=== PATIENT | female | born 1965 | race Caucasian/White ===

== ENCOUNTER → 2018-01-12 | Emergency (ER) | payer OTHER ==
[~2018-01-12] VITALS: Ht 170.2 cm; Wt 90.7 kg
[~2018-01-12] MED LIST: ANAPROX DS550 MG PO; BACTRIM DS TAB1 EACH PO; ONDANSETRON ODT8 MG PO; POTASSIUM CHLO20 ME1 PO; SYNTHROID75 MCG PO; TRIAMTERENE-HC1 EAC3 PO
== END ==
LOC: ED 17:07
DX: K52.9 Noninfective gastroenteritis and colitis, unspecified (principal); I10 Essential (primary) hypertension; Z79.899 Other long term (current) drug therapy
CPT/HCPCS: 80053; 81001; 83690; 85025; 96374; 99284; J2405

== ENCOUNTER 2024-04-22 09:36 | Emergency (ER) | payer OTHER ==
[~2024-04-22] VITALS: Ht 170.2 cm; Wt 88.8 kg
[2024-04-22] MEDS ORDERED: ASPIRIN 81 MG CHEW PO ONE (09:45)
[2024-04-22 09:53] LABS: BASOPHILS 0.6 % (0-2); EOSINOPHILS 1.7 % (0-6); HEMATOCRIT 38.9 % (35.0-50.0); HEMOGLOBIN 13.4 g/dL (12.0-18.0); LYMPHOCYTES 34.7 % (24-44); MCH 34.3 (27-36); MCHC 34.4 g/dl (30-36); MCV 99.7 fl (81-99); MONOCYTES 8.9 % (0-12); NEUTROPHILS 54.1 % (39-80); PLATELET COUNT 226 K/uL (140-440); RDW 13.9 (10.5-15.0)
[2024-04-22 10:13] LABS: ALBUMIN 4.1 g/dL (3.4-5.0); ALBUMIN/GLOBULIN RATIO 1.17 (1.1-2.4); ALKALINE PHOSPHATASE 125 U/L (46-116); ALT (SGPT) 36 U/L (14-59); AST (SGOT) 16 U/L (15-37); BILIRUBIN, TOTAL 0.2 ng/dL (0.2-1.0); CALCIUM 9.6 mg/dL (8.5-10.1); CARBON DIOXIDE 26 mmol/L (21-32); CHLORIDE 103 mmol/L (98-107); GLOMERULAR FILTRATION RATE,EST 66 mL/min (>60); PROTEIN, TOTAL 7.6 g/dL (6.4-8.2); UREA NITROGEN 33 mg/dL (7-18)
[2024-04-22] MEDS ORDERED: ACETAMINOPHEN 500 MG TAB PO ONE (11:00)
[2024-04-22 11:17] LABS: BILIRUBIN, URINE NEGATIVE (negative); BLOOD/HGB, URINE NEGATIVE (Negative); KETONE, URINE NEGATIVE (Negative); LEUK ESTERASE, URINE NEGATIVE (negative); NITRITE, URINE NEGATIVE (negative)
[2024-04-22 11:26] VITALS: BP 115/88
--- NOTE | 2024-04-22 19:23 | EKG ---
[facility] [address] [place], [place] [address] Signed Normal sinus rhythm Normal ECG Confirmed by Kike Arroyo MD ([id number]) on 04/22/2024 7:23:42 PM Electronically Signed By: KIKE ARROYO MD 04/22/241922 PATIENT NAME: HAYDER BULLARD Electrocardiogram DATE OF : 67 PHYSICIAN: KIKE ARROYO MD REPORT #: [id number] REPORT IS CONFIDENTIAL AND NOT TO BE RELEASED WITHOUT AUTHORIZATION
== END 2024-04-22 11:26 | disposition home or self-care (01) ==
LOC: ED 09:36
PROVIDERS: Emergency Medicine
DX: R07.89 Other chest pain (principal); I10 Essential (primary) hypertension; E11.9 Type 2 diabetes mellitus without complications; Z79.899 Other long term (current) drug therapy; Z79.890 Hormone replacement therapy
CPT/HCPCS: 36415; 71045; 80053; 81003; 83880; 84484; 85025; 85379; 93005; 93010; 99285-25; A9270

== ENCOUNTER 2024-05-30 13:43 | Emergency (ER) | payer OTHER ==
[~2024-05-30] VITALS: Ht 170.2 cm; Wt 88.5 kg
[2024-05-30] MEDS ORDERED: SODIUM CHLORIDE 0.9% 1,000 ML IV ONE (14:00)
[2024-05-30 14:11] LABS: BILIRUBIN, URINE NEGATIVE (negative); BLOOD/HGB, URINE SMALL (Negative); KETONE, URINE NEGATIVE (Negative); LEUK ESTERASE, URINE MODERATE (negative); NITRITE, URINE NEGATIVE (negative)
[2024-05-30] MEDS ORDERED: LISINOPRIL-HCT1 EAC1 PO (14:13)
[2024-05-30] MEDS ORDERED: LEVOTHYROXINE50 MCG PO (14:14)
[2024-05-30 14:16] LABS: CRYSTALS, URINE NONE SEEN (0-1+); EPITHELIAL CELLS, URINE SQUAMOUS 1+ /lpf (0-1+); WHITE BLOOD CELLS, URINE >50 /HPF (0-5)
[2024-05-30 14:17] LABS: BACTERIA, URINE 2+ /hpf (negative); CASTS, URINE NONE SEEN \\lpf; COLLECTION TYPE, URINE CLEAN CATCH; REFLEX CULTURE, URINE Yes (No)
[2024-05-30 14:25] LABS: BASOPHILS 0.2 % (0-2); EOSINOPHILS 0.1 % (0-6); HEMATOCRIT 34.1 % (35.0-50.0); HEMOGLOBIN 12.1 g/dL (12.0-18.0); MCH 34.8 (27-36); MCHC 35.5 g/dl (30-36); MCV 98.1 fl (81-99); MONOCYTES 12.3 % (0-12); NEUTROPHILS 72.4 % (39-80); PLATELET COUNT 229 K/uL (140-440); RBC 3.47 M/ul (4.3-5.7); RDW 13.8 (10.5-15.0)
[2024-05-30 14:40] LABS: ALBUMIN 3.3 g/dL (3.4-5.0); ALBUMIN/GLOBULIN RATIO 0.77 (1.1-2.4); ANION GAP 13.1 (7-21); BILIRUBIN, TOTAL 0.3 ng/dL (0.2-1.0); BUN/CREATININE RATIO 15.31 (6.0-28.6); CALCIUM 8.7 mg/dL (8.5-10.1); CREATININE, SERUM 2.09 mg/dL (0.55-1.02); POTASSIUM 3.1 mmol/L (3.5-5.1); PROTEIN, TOTAL 7.6 g/dL (6.4-8.2)
[2024-05-30] MEDS ORDERED: ACETAMINOPHEN 500 MG TAB PO ONE (15:00)
[2024-05-30] MEDS ORDERED: CEPHALEXIN500 MG PO (15:24)
[2024-05-30 15:41] VITALS: BP 104/69
[2024-05-30] MEDS ORDERED: CEPHALEXIN MONOHYDRATE 500 MG CAP PO ONE (15:45)
== END 2024-05-30 15:42 | disposition home or self-care (01) ==
LOC: ED 13:43
PROVIDERS: Emergency Medicine
DX: N39.0 Urinary tract infection, site not specified (principal); N17.9 Acute kidney failure, unspecified; N18.9 Chronic kidney disease, unspecified; I10 Essential (primary) hypertension; Z88.7 Allergy status to serum and vaccine; Z88.2 Allergy status to sulfonamides; Z79.890 Hormone replacement therapy; Z79.899 Other long term (current) drug therapy
CPT/HCPCS: 36415; 51701; 51798; 80053; 81001; 85025; 87088; 99283-25; A9270; J7030

== ENCOUNTER 2024-08-30 06:36 | Inpatient (IN) | payer OTHER ==
[~2024-08-30] VITALS: Ht 170.2 cm; Wt 86.7 kg
[~2024-08-30 06:36] MED LIST changes: +CEPHALEXIN500 MG PO; +LEVOTHYROXINE50 MCG PO; +LISINOPRIL-HCT1 EAC1 PO
[2024-08-30] MEDS ORDERED: HYDROCHLOROTH12.5 M1 PO (07:02)
[2024-08-30] MEDS ORDERED: ALBUTEROL/IPRATROPIUM 3 ML NEB INH ONE ×3 (07:45→20:45)
[2024-08-30 07:55] LABS: BASOPHILS 0.5 % (0-2); HEMATOCRIT 38.9 % (35.0-50.0); HEMOGLOBIN 13.6 g/dL (12.0-18.0); LYMPHOCYTES 30.4 % (24-44); MCH 32.7 (27-36); MCHC 34.9 g/dl (30-36); MCV 93.7 fl (81-99); MONOCYTES 18.1 % (0-12); PLATELET COUNT 152 K/uL (140-440); RBC 4.15 M/ul (4.3-5.7); RDW 13.7 (10.5-15.0)
[2024-08-30 08:18] LABS: ALBUMIN 3.9 g/dL (3.4-5.0); ALBUMIN/GLOBULIN RATIO 1.22 (1.1-2.4); ANION GAP 12.9 (7-21); BILIRUBIN, TOTAL 0.3 mg/dL (0.2-1.0); BUN/CREATININE RATIO 22.03 (6.0-28.6); CALCIUM 8.9 mg/dL (8.5-10.1); CREATININE, SERUM 1.18 mg/dL (0.55-1.02); POTASSIUM 2.9 mmol/L (3.5-5.1); PROTEIN, TOTAL 7.1 g/dL (6.4-8.2)
[2024-08-30 08:23] LABS: CORONAVIRUS COVID-19 AG NEGATIVE (NEGATIVE); INFLUENZA A AG POSITIVE (NEGATIVE); INFLUENZA B AG NEGATIVE (NEGATIVE)
[2024-08-30] MEDS ORDERED: POTASSIUM CHLORIDE 20 MEQ/15 ML CUP PO ONE (09:00)
[2024-08-30] MEDS ORDERED: ondansetron HCL 4 MG/2 ML VIAL IV PRN (09:15)
[2024-08-30] MEDS ORDERED: ACETAMINOPHEN 325 MG TAB PO PRN (09:15)
[2024-08-30] MEDS ORDERED: LACTATED RINGER'S 1,000 ML IV SCH (09:15)
[2024-08-30] MEDS ORDERED: OSELTAMIVIR PHOSPHATE 75 MG CAP PO ONE (09:15)
[2024-08-30 10:55] VITALS: BP 113/72
--- NOTE | 2024-08-30 11:04 | NUR ---
THIS RN TO ER, VERBAL REPORT RECEIVED FROM LORENA PAYTON. THIS RN TRANSPORTS PT VIA GURNEY FROM ER TO MED-SURG. PT ARRIVES TO MED-SURG ROOM 112 AT 1045. PT AMBULATES FROM GURNEY TO BED, TOLERATES THIS WELL. VSS. PT SATS 96 ON 3 LPM VIA [place]. FAMILY X2 AT BEDSIDE. PT ORIENTED TO ROOM, CALL LIGHT, PHONE AND BED. PT TITRATED DOWN TO 2 LPM, SATS 94%.
[2024-08-30] MEDS ORDERED: VITAMIN D21250 MCG PO (11:44)
[2024-08-30] MEDS ORDERED: LOSARTAN POTASS25 MG PO (11:44)
[2024-08-30] MEDS ORDERED: HYDROCHLOROTHIA25 MG PO (11:45)
[2024-08-30] MEDS ORDERED: ESTRADIOL42.5 GM PV (11:49)
[2024-08-30] MEDS ORDERED: PHARMACY RENAL DOSE ADJUSTMENT 1 DOSE MISC PO SCH (12:00)
--- NOTE | 2024-08-30 12:08 | NUR ---
PT RESTS IN BED, SCDS IN PLACE TO BLE. LR INFUSING AT 100 ML/HR, IV SITE INTACT, NO REDNESS OR SWELLING. CALL LIGHT IN REACH. NO REQUESTS AT THIS TIME.
[2024-08-30] MEDS ORDERED: METRONIDAZOLE500 MG PO (12:38)
[2024-08-30] MEDS ORDERED: CLINDAMYCIN PHO40 GM PV (12:38)
[2024-08-30] MEDS ORDERED: NITROFURANTOIN100 M1 PO (12:40)
--- NOTE | 2024-08-30 13:03 | NUR ---
PATIENT IN BED AT THIS TIME. TITLE CURATIVE SPECIALIST DID HOURLY ROUNDS, CALL LIGHT WITHIN REACH, NO FURTHER NEEDS AT THIS TIME.
--- NOTE | 2024-08-30 13:12 | NUR ---
medications reconciled using pharmacy records and patient interview
[2024-08-30 13:43] VITALS: BP 114/71
--- NOTE | 2024-08-30 13:47 | NUR ---
PATIENT IN BED AT THIS TIME. COMMERCIAL ATTACHE CHARTED VITALS AND I&O'S. CALL LIGHT WITHIN REACH, NO FURTHER NEEDS AT THIS TIME.
[2024-08-30] MEDS ORDERED: AZITHROMYCIN 250 MG TAB PO SCH (13:52)
[2024-08-30] MEDS ORDERED: CEFTRIAXONE SODIUM 2 GM in SODIUM CHLORIDE 0.9% 100 ML IV SCH (13:52)
--- NOTE | 2024-08-30 14:25 | NUR ---
UR CLINICAL REVIEW: JOY, MEETS INPT FOR VIRAL ILLNESS, ACUTE NEED FOR OXYGEN WITHOUT BASELINE NEED, POSITIVE INFLUENZA EOCCO INPT 08/30/2024 @ 0931 ORDER MATCHES REG AUTH PENDING, CLINICALS SENT VIA [employer] TO HOME WHEN MEDICALLY STABLE 09/01/2024
--- NOTE | 2024-08-30 15:00 | NUR ---
Spoke with Chelsey. She states she lives in [place]. She lives alone. 1 step into the home. She does not use any DME. Pt uses the pharmacy at [facility] and her PCP is in [place], [place]. She denies any needs. States her daughter will assist her if needed. She is using 02 while in the hospital. She has a harsh cough. Denies financial or safety issues. Home when cleared medically.
[2024-08-30] MEDS ORDERED: GUAIFENESIN/DEXTROMETHORPHAN 5 ML SYRUP PO SCH (18:00)
[2024-08-30 18:09] VITALS: BP 106/60
--- NOTE | 2024-08-30 18:11 | NUR ---
PATIENT IN BED AT THIS TIME. MAGAZINE FILLER CHARTED VITALS AND I&O'S. CALL LIGHT WITHIN REACH, NO FURTHER NEEDS AT THIS TIME.
[2024-08-30 18:30] VITALS: BP 106/60
--- NOTE | 2024-08-30 19:22 | NUR ---
RECEIVED REPORT FROM DAY SHIFT RN. PATIENT IS RESTING IN BED. PATIENT DENIES ANY NEEDS. CALL LIGHT IN REACH.
[2024-08-30] MEDS ORDERED: OSELTAMIVIR PHOSPHATE 75 MG CAP PO SCH (21:00)
[2024-08-30] MEDS ORDERED: MELATONIN 3 MG TAB PO PRN (21:00)
[2024-08-30 21:06] VITALS: BP 108/60
[2024-08-30 21:11] VITALS: BP 108/60
--- NOTE | 2024-08-30 21:32 | NUR ---
PATIENTS VITALS TAKEN AND RECORED. INTAKE AND OUPUT RECORDED. NEB TX GIVEN PER ORDER. PATIENT PLACED ON CPOX. PATIENT OXYGEN SATURATION NOTED TO BE 86% ON 1L VIA NC. PATIENT TITRATED TO 2L VIA NC AND OXYGEN SATURATION IMPROVED TO 92%. PATIENTS OM MEDS GIVEN PER ORDER. PATIENTS IV FLUSHED AND SL PER ORDER. PATIENT DENIES ANY FURTHER NEEDS. CALL LIGHT IN REACH.
--- NOTE | 2024-08-30 22:25 | NUR ---
PATIENT UP TO BR. PATIENT ABLE TO VOID. PATIENT IS BACK IN BED RESTING. PATIENT REPORTS A HEADAHCE, PRN MEDICATION GIVEN PER ORDER. PATIENT REMAINS ON 2L VIA NC. CPOX IN USE. PATIENT DENIES ANY SOB. PATIENT DENIES ANY FURTHER NEEDS. CALL LIGHT IN REACH.
[2024-08-31] VITALS (11 sets, daily range): BP systolic 101–121; BP diastolic 62–78
--- NOTE | 2024-08-31 00:23 | NUR ---
PATIENT IS RESTING IN BED WITH EYES CLOSED, CPOX READINGS ARE WNL. NAD NOTED. CALL LIGHT IN REACH. PATIENT REMAINS ON 2L VIA NC.
--- NOTE | 2024-08-31 02:12 | NUR ---
PATIENT UP TO THE BR TO VOID. PATIENT IS BACK IN BED RESTING. PATIENT DENIES ANY SOB. PATIENT REMAINS ON 2L VIA NC. CPOX IN USE. VITALS TAKEN AND RECORDED. INTAKE AND OUTPUT RECORDED. SCHEDULED MEDS GIVEN PER ORDER. FRESH ICE WATER AND SEVEN UP PROVIDED. RT IN TO EVALUATE PATIENT. PATIENT DENIES ANY FURTHER NEEDS. CALL LIGHT IN REACH.
[2024-08-31] MEDS ORDERED: ALBUTEROL/IPRATROPIUM 3 ML NEB INH PRN (02:15)
--- NOTE | 2024-08-31 04:02 | NUR ---
PATIENT IS RESTING IN BED WITH EYES CLOSED, CPOX READINGS ARE WNL. NAD NOTED. CALL LIGHT IN REACH.
--- NOTE | 2024-08-31 05:30 | NUR ---
LAB IN ROOM. PATIENTS VITALS TAKEN AND RECORDED. PATIENT UP TO BR AND ABLE TO VOID. PATIENT IS BACK IN BED RESTING. INTAKE AND OUTPUT RECORDED. PATIENTS AM MEDS GIVEN PER ORDER. THIS RN ATTEMPTED TO TITRATE PATIENT TO RA. PATIENT DESATED TO 85% ON RA. PATIENT PLACED BACK ON 2L VIA NC. PATIENT DENIES ANY SOB. PATIENT DENIES ANY FURTHER NEEDS CALL LIGHT IN REACH.
[2024-08-31 05:32] LABS: BASOPHILS 0.5 % (0-2); EOSINOPHILS 0.1 % (0-6); HEMATOCRIT 39.4 % (35.0-50.0); HEMOGLOBIN 13.7 g/dL (12.0-18.0); LYMPHOCYTES 53.9 % (24-44); MCH 32.8 (27-36); MCHC 34.7 g/dl (30-36); MCV 94.5 fl (81-99); MONOCYTES 12.6 % (0-12); NEUTROPHILS 32.9 % (39-80); PLATELET COUNT 146 K/uL (140-440); RBC 4.17 M/ul (4.3-5.7); RDW 14.1 (10.5-15.0)
[2024-08-31 05:54] LABS: ALBUMIN 3.5 g/dL (3.4-5.0); ALBUMIN/GLOBULIN RATIO 1.09 (1.1-2.4); BILIRUBIN, TOTAL 0.2 mg/dL (0.2-1.0); BUN/CREATININE RATIO 18.07 (6.0-28.6); CALCIUM 8.3 mg/dL (8.5-10.1); CREATININE, SERUM 0.83 mg/dL (0.55-1.02); PROTEIN, TOTAL 6.7 g/dL (6.4-8.2)
--- NOTE | 2024-08-31 06:30 | NUR ---
PATIENT IS RESTING IN BED WATCHING TV. PATIENT DENIES ANY NEEDS. CALL LIGHT IN REACH.
[2024-08-31] MEDS ORDERED: LEVOTHYROXINE SODIUM 50 MCG TAB PO SCH (07:00)
--- NOTE | 2024-08-31 07:12 | NUR ---
VERBAL REPORT RECEIVED FROM LORENA MARTINEZ. PT RESTS IN BED, AWAKE AND ALERT, WATCHES TV, REQUESTS APPLE SAUCE, RECEIVED. CALL LIGHT IN REACH, NO FURTHER REQUESTS AT THIS TIME.
--- NOTE | 2024-08-31 08:01 | NUR ---
PATIENT IN BED AT THIS TIME. FARMWORKER CRANBERRY DID HOURLY ROUNDS. CALL LIGHT WITHIN REACH, NO FURTHER NEEDS AT THIS TIME.
[2024-08-31] MEDS ORDERED: hydroCHLOROthiazide 25 MG TAB PO SCH (09:00)
[2024-08-31] MEDS ORDERED: LOSARTAN POTASSIUM 25 MG TAB PO SCH (09:00)
[2024-08-31] MEDS ORDERED: POTASSIUM CHLORIDE 10 MEQ TABCR PO ONE (09:00)
[2024-08-31] MEDS ORDERED: POTASSIUM CHLORIDE 40 MEQ,LIDOCAINE HCL 1% 40 MG in DEXTROSE 5% 250 ML IV ONE (09:00)
--- NOTE | 2024-08-31 09:16 | NUR ---
PATIENT IN BED AT THIS TIME. ON SITE CONSTRUCTION SUPERINTENDENT CHARTED VITALS AND I&O'S. CALL LIGHT WITHIN REACH, NO FURTHER NEEDS AT THIS TIME.
--- NOTE | 2024-08-31 09:37 | NUR ---
IV POTASSIUM INFUSING FOR 4 HOURS.
--- NOTE | 2024-08-31 09:50 | NUR ---
Spoke with Chelsey. Pt looks better today, but states she feels worse. I was unable to find her pcp on the internet. She was able to look in her phone and pts first name is Jaiden, not his last name. Dr is Jaiden Phelps DO from [facility]. I emailed admitting and asked them to add him to the chart.
--- NOTE | 2024-08-31 11:13 | NUR ---
PATIENT GIVEN 2 TYLENOL FOR 5/10 RIGHT ARM PAIN ASSOCIATED WITH POTASSIUM INFUSION.
--- NOTE | 2024-08-31 12:15 | EKG ---
[facility] [address] [place] [address] Signed Normal sinus rhythm Nonspecific ST and T wave abnormality Abnormal ECG When compared with ECG of 22-APR-2024 09:43, Nonspecific T wave abnormality, worse in Anterolateral leads Confirmed by Janet Saravia DO ([id number]) on 08/31/2024 12:15:03 PM Electronically Signed By: JANET SARAVIA DO 08/31/24 1215 PATIENT NAME: HAYDER BULLARD Electrocardiogram DATE OF : 67 PHYSICIAN: JANET SARAVIA DO REPORT #: [id number] REPORT IS CONFIDENTIAL AND NOT TO BE RELEASED WITHOUT AUTHORIZATION
--- NOTE | 2024-08-31 13:38 | NUR ---
PATIENT IN BED AT THIS TIME. MANAGER CREATIVE CHARTED VITALS AND I&O'S. CALL LIGHT WITHIN REACH, NO FURTHER NEEDS AT THIS TIME.
--- NOTE | 2024-08-31 15:19 | NUR ---
PT LEAVES UNIT TO IMAGING FOR CHEST CT.
--- NOTE | 2024-08-31 16:44 | NUR ---
PATIENT IN BED AT THIS TIME. THIS CHIEF LOAD DISPATCHER WENT INTO PATIENTS ROOM FOR HOURLY ROUNDS, THIS CHIEF LOAD DISPATCHER BROUGHT PATIENT A WORD SEARCH. PATIENT STATED THAT SHE WANTED A SHOWER AFTER DINNER. CALL LIGHT WITHIN REACH, NO FURTHER NEEDS AT THIS TIME.
--- NOTE | 2024-08-31 17:00 | NUR ---
PT SPO2 TITRATED DOWN TO TO 2 LPM, PT SATS 92%.
--- NOTE | 2024-08-31 17:12 | NUR ---
PT SITS UP IN RECLINER, EATS DINNER, SPO2 93% ON 1 LPM. CALL LIGHT IN REACH, NO REQUESTS AT THIS TIME.
--- NOTE | 2024-08-31 18:18 | NUR ---
PT SPO2 ON CPOX IS 94% ON 1 LPM. PT RESTS IN BED ON CELL PHONE. CALL LIGHT IN REACH.
--- NOTE | 2024-08-31 18:32 | NUR ---
PATIENT IN BED AT THIS TIME. SOLUTIONS SALES EXECUTIVE CHARTED PATIENTS VITALS AND I&O'S. SOLUTIONS SALES EXECUTIVE ALSO SET PATIENT UP FOR SHOWER, PATIENT ABLE TO SHOWER INDEPENDENTLY. CALL LIGHT WITHIN REACH, NO FURTHER NEEDS AT THIS TIME.
--- NOTE | 2024-08-31 19:05 | NUR ---
REPORT RECEIVED FROM LORENA CASTELLANO.
--- NOTE | 2024-08-31 21:07 | NUR ---
PATIENT RESTING IN BED WATCHING TV. PATIENT 95% ON 1L NC; OXYGEN TURNED OFF AT THIS TIME TO SEE HOW PATIENT DOES WITHOUT OXYGEN. CPOX AT BEDSIDE. PATIENT WITHOUT FURTHER NEEDS AT THIS TIME. CALL LIGHT AND PERSONAL BELONGINGS WITHIN REACH.
--- NOTE | 2024-09-01 00:10 | NUR ---
PATIENT MEDICATED PER EMAR. PATIENT 93% ON ROOM AIR AT THIS TIME. PATIENT DENIES ANY SOB AT THIS TIME. CPOX AT BEDSIDE. PATIENT DENIES ANY FURTHER NEEDS AT THIS TIME. CALL LIGHT AND PERSONAL BELONGINGS WITHIN REACH.
--- NOTE | 2024-09-01 00:12 | NUR ---
PATIENT RESTING IN BED WITH HER EYES CLOSED AND LAYING ON HER RIGHT SIDE. EVEN AND UNLABORED RESPIRATIONS NOTED. PATIENT IS 90% ON ROOM AIR AT THIS TIME. CALL LIGHT AND PERSONAL BELONINGS WITHIN REACH. CPOX AT BEDSIDE.
--- NOTE | 2024-09-01 02:26 | NUR ---
PATIENT RESTING IN BED WITH EYES CLOSED ON HER RIGHT SIDE WHEN THIS RN ENTERED ROOM. PATIENT OPENED EYES AND TOOK MEDICATIONS PER EMAR. PATIET IS 89% ON ROOM AIR AT THIS TIME. PATIENT DENIES ANY SOB. PATIENT REQUESTED TYLENOL FOR 5/10 HEADACHE. PATIENT WITHOUT FURTHER NEEDS AT THIS TIME. CALL LIGHT AND PERSONAL BELONGINGS WITHIN REACH. CPOX AT BEDSIDE.
--- NOTE | 2024-09-01 04:04 | NUR ---
PATIENT RESTING IN BED ON HER BELLY WITH HER EYES CLOSED. EVEN AND UNLABORED RESPIRATIONS NOTED. PATIENT IS 90% ON ROOM AIR AT THIS TIME. CALL LIGHT AND PERSONAL BELONGINGS WITHIN REACH.
[2024-09-01 05:16] VITALS: BP 105/74
[2024-09-01 05:44] LABS: BASOPHILS 0.3 % (0-2); EOSINOPHILS 0.4 % (0-6); HEMATOCRIT 40.2 % (35.0-50.0); LYMPHOCYTES 52.2 % (24-44); MCH 33.1 (27-36); MCHC 34.9 g/dl (30-36); MCV 94.7 fl (81-99); MONOCYTES 10.6 % (0-12); NEUTROPHILS 36.5 % (39-80); PLATELET COUNT 155 K/uL (140-440); RBC 4.24 M/ul (4.3-5.7); RDW 13.7 (10.5-15.0)
[2024-09-01 05:49] VITALS: BP 105/74
[2024-09-01 05:55] LABS: ANION GAP 11.4 (7-21); BUN/CREATININE RATIO 14.77 (6.0-28.6); CALCIUM 8.8 mg/dL (8.5-10.1); CREATININE, SERUM 0.88 mg/dL (0.55-1.02); POTASSIUM 3.4 mmol/L (3.5-5.1)
--- NOTE | 2024-09-01 06:00 | NUR ---
PATIENT MEDICATED PER EMAR. PATIENT UP TO BATHROOM WHILE THIS RN IN ROOM. PATIENT SPOT CHECKED WITH PULSE OX. PATIENT REMAINED 91% WITH AMBULATION TO BATHROOM ON ROOM AIR. PATIENT BACK TO BED AND DENIES ANY SOB. PATIENT WITHOUT FURTHER NEEDS AT THIS TIME. CALL LIGHT AND PERSONAL BELONGINGS WITHIN REACH. VS STABLE.
[2024-09-01] MEDS ORDERED: POTASSIUM BICARBONATE/CIT AC 20 MEQ TABEF PO ONE (07:45)
[2024-09-01 09:35] VITALS: BP 128/85
[2024-09-01] MEDS ORDERED: OSELTAMIVIR PHO75 MG PO (09:45)
[2024-09-01] MEDS ORDERED: CEFDINIR300 MG PO (09:47)
--- NOTE | 2024-09-01 10:00 | NUR ---
Spoke with Chelsey. She looks 100% better today. She is standing at the bedside smiling. Wants to dc to home today. Her 15 yo grandson will be staying with her today. She denies any needs. States concern for her pcp to get her records. Let her know [facility] is making a FU appt for her. I have emailed medical records with her pcps name, phone, and fax number. Pt is off of 02. Friend will special events driver her home.
--- NOTE | 2024-09-01 10:02 | NUR ---
Patient awake, alert and oriented x4. Patient reports she is feeling much better today. Patient is on room air, respirations non labored, sp02 96%. Patient reports Dr. Luong is sending her home today.
[2024-09-01] MEDS ORDERED: SYNTHROID50 MCG PO (10:09)
== END 2024-09-01 11:30 | disposition home or self-care (01) | DRG 193 ==
LOC: ED 06:36 → MS 09:31
PROVIDERS: Emergency Medicine; ADMIT Student in an Organized Health Care Education/Training Program; ATTEND Student in an Organized Health Care Education/Training Program
DX: J10.00 Influenza due to other identified influenza virus with unspecified type of pneumonia (principal); J96.01 Acute respiratory failure with hypoxia; I50.30 Unspecified diastolic (congestive) heart failure; Z96.612 Presence of left artificial shoulder joint; Z96.611 Presence of right artificial shoulder joint; Z96.651 Presence of right artificial knee joint; I11.0 Hypertensive heart disease with heart failure; E03.9 Hypothyroidism, unspecified; Z90.710 Acquired absence of both cervix and uterus; Z88.2 Allergy status to sulfonamides; Z88.7 Allergy status to serum and vaccine; Z79.899 Other long term (current) drug therapy; Z87.440 Personal history of urinary (tract) infections; Z98.890 Other specified postprocedural states
CPT/HCPCS: 36415; 71045; 71250; 80048; 80053; 83735; 83880; 84484; 85025; 85060; 93005; 93010; 93306; 94640; 94667; 94668; 94762; A9270; J0696; J3480; J3490; J7060; J7121